=== PATIENT | male | born 1970 | race Caucasian/White ===

== ENCOUNTER 2021-07-29 01:58 | Emergency (ER) | payer MEDICAID ==
[~2021-07-29] VITALS: Ht 162.6 cm; Wt 77.0 kg
[2021-07-29 02:17] VITALS: BP 138/82
[2021-07-29] MEDS ORDERED: BACITRACIN ZINC OINT UDPKT TOP ONE (04:00)
[2021-07-29] MEDS ORDERED: IBUPROFEN 600MG TABLET PO ONE (04:00)
[2021-07-29] MEDS ORDERED: BO1 TP (04:07)
[2021-07-29] MEDS ORDERED: NAPR-681 PO (04:07)
== END 2021-07-29 04:01 | disposition home or self-care (01) ==
LOC: ER 01:58
DX: S01.01XA Laceration without foreign body of scalp, initial encounter (principal); W01.10XA Fall on same level from slipping, tripping and stumbling with subsequent striking against unspecified object, initial encounter; Y93.89 Activity, other specified; Y92.89 Other specified places as the place of occurrence of the external cause
CPT/HCPCS: 99282